=== PATIENT | female | born 1995 | race Two or more races ===

== ENCOUNTER 2022-07-22 22:02 | Emergency (ER) | payer OTHER ==
[~2022-07-22] VITALS: Ht 152.4 cm; Wt 48.5 kg
[2022-07-23 00:22] VITALS: BP 139/97
--- NOTE | 2022-07-23 00:22 | NUR ---
BIBFRIEND C/O R EYE REDNESS. DENIES IRRIATION OR PAIN
--- NOTE | 2022-07-23 00:29 | NUR ---
Patient discharged to home in stable condition. Written and verbal after care instructions given. Patient verbalizes understanding of instruction.
== END 2022-07-23 00:32 | disposition home or self-care (01) ==
LOC: ER 22:10
DX: H11.31 Conjunctival hemorrhage, right eye (principal)